=== PATIENT | female | born 1965 | race Caucasian/White ===

== ENCOUNTER 2017-10-25 21:40 | Emergency (ER) | payer OTHER | END 2017-10-25 22:27 | disposition home or self-care (01) | LOC: ER 22:27 | DX: M25.562 Pain in left knee (principal); R22.42 Localized swelling, mass and lump, left lower limb | CPT/HCPCS: 73564; 99284 ==

== ENCOUNTER 2019-10-19 08:25 | Emergency (ER) | payer MEDICAID, OTHER ==
[~2019-10-19] VITALS: Ht 160 cm; Wt 62.0 kg
[~2019-10-19 08:25] MED LIST: CEPH-264 PO; CIPR500T94 PO; DICL100G54 TP; DICL50TA4 PO; METH4TAB2 PO; PHEN-318 PO; PHEN100T82 PO
[2019-10-19 09:50] VITALS: BP 110/59
[2019-10-19] MEDS ORDERED: NAPR-514 PO (10:30)
--- NOTE | 2019-10-19 10:30 | PHYS DOC ---
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 Nothing was torn but they did tell her that she had arthritis. She states that every now and then it starts to act up and on Saturday when she was at work she was having to bend over a lot and go up and down some hills and her left knee began to really hurt her. She states she had to go home. She is here for sick note and states that she is out of the naproxen that does help her pain. Patient states that she will follow-up with Dr. Faustin as soon as she can. Patient states that she is ambulatory and can bear weight without problems is just very painful. She rates her pain a throbbing, sharp shooting in the anterior patella at 7 out of 10 and when she is up and moving is at a 10 out of 10. She denies any numbness or tingling, skin color change, skin temperature change, swelling, dizziness, headache, fall, back pain, neck pain, chest pain, shortness of air, cough. Denies any new injury. (KHALIF SLAUGHTER INTEGRITY MANAGER) Review of Systems: Review of Systems: Constitutional: Denies fever or chills. [] Eyes: Denies change in visual acuity. [] HENT: Denies nasal congestion or sore throat. [] Respiratory: Denies cough or shortness of breath. [] Cardiovascular: Denies chest pain or edema. [] GI: Denies abdominal pain, nausea, vomiting, bloody stools or diarrhea. [] : Denies dysuria. [] Musculoskeletal: Denies back pain. Right knee joint pain. [] Integument: Denies rash. [] Neurologic: Denies headache, focal weakness or sensory changes. [] Endocrine: Denies polyuria or polydipsia. [] Lymphatic: Denies swollen glands. [] Psychiatric: Denies depression or anxiety. [] (KHALIF SLAUGHTER APRN) Heart Score: Risk Factors: Risk Factors: DM, Current or recent (<one month) smoker, HTN, HLP, family history of CAD, obesity. Risk Scores: Score 0 - 3: 2.5% MACE over next 6 weeks - Discharge Home Score 4 - 6: 20.3% MACE over next 6 weeks - Admit for Clinical Observation Score 7 - 10: 72.7% MACE over next 6 weeks - Early Invasive Strategies ([facility]) Allergies: Allergies: Allergies Coded Allergies Type Severity Reaction Last Updated Verified No Known Drug Allergies 01/26/14 No ([facility]) Physical Exam: PE: Constitutional: Well developed, well nourished, no acute distress, non-toxic appearance. [] HENT: Normocephalic, atraumatic, bilateral external ears normal, oropharynx moist, no oral exudates, nose normal. [] Eyes: PERRLA, EOMI, conjunctiva normal, no discharge. [] Neck: Normal range of motion, no tenderness, supple, no stridor. [] Cardiovascular:Heart rate regular rhythm, no murmur [] Lungs & Thorax: Bilateral breath sounds clear to auscultation [] Abdomen: Bowel sounds normal, soft, no tenderness, no masses, no pulsatile masses. [] Skin: Warm, dry, no erythema, no rash. [] Back: No tenderness, no CVA tenderness. [] Extremities: No tenderness, no cyanosis, no clubbing, ROM intact, no edema. [] Neurologic: Alert and oriented X 3, normal motor function, normal sensory function, no focal deficits noted. [] Psychologic: Affect normal, judgement normal, mood normal. Normal physical exam [] ([facility] INTEGRITY MANAGER) Current Patient Data: Vital Signs: Vital Signs Date Time Temp Pulse Resp B/P (MAP) Pulse Ox O2 Delivery O2 Flow Rate FiO2 10/19/19 09:50 98.6 70 16 110/59 (76) 100 Room Air 98.6 ([facility]) EKG: EKG: [] (KHALIF SLAUGHTER APRN) Radiology/Procedures: Radiology/Procedures: [] (KHALIF SLAUGHTER APRN) Course & Med Decision Making: Course & Med Decision Making Pertinent Labs and Imaging studies reviewed. (See chart for details) Alert and oriented. Speaks in full clear sentences. Ambulatory with a steady gait. Skin pink warm and dry. No swelling, redness or tenderness to the extremity. She has full range of motion of the extremity. Denies any current fever or body aches. Patient has a history of esophageal stricture and dilation and she is also a smoker and arthritis in her left knee. Patient is given prescription for naproxen and a work note. Patient to follow-up with her doctor. [] (KHALIF SLAUGHTER APRN) Dragon Disclaimer: Dragon Disclaimer: This electronic medical record was generated, in whole or in part, using a voice recognition dictation system. (KHALIF SLAUGHTER APRN) Departure Departure Impression: Primary Impression: Knee pain, left Qualified Codes: M25.562 - Pain in left knee; G89.29 - Other chronic pain Disposition: HOME, SELF-CARE Condition: STABLE Referrals: NO PCP (PCP) Patient Instructions: Arthralgia Additional Instructions: Follow-up with your doctor soon as possible. Use ice and elevation rest the extremity. Scripts Naproxen (NAPROXEN) 500 Mg Tablet 1 TAB PO BID for pain for 30 Days, #60 TAB 0 Refills Prov: KHALIF SLAUGHTER APRN 10/19/19 Justicifation of Admission Dx: Justifications for Admission: Justification of Admission Dx: N/A (KHALIF SLAUGHTER APRN) Attending Signature Attending Signature I have participated in the care of this patient and I have reviewed and agree with all pertinent clinical information above including history, exam, and recommendations. (MUKESH MORRIS DO) KHALIF SLAUGHTER APRN Oct 19, 2019 10:30 MUKESH MORRIS DO Oct 19, 2019 16:01
== END 2019-10-19 10:42 | disposition home or self-care (01) ==
LOC: ER 08:25
DX: G89.29 Other chronic pain (principal); M25.562 Pain in left knee; F17.200 Nicotine dependence, unspecified, uncomplicated; Z98.51 Tubal ligation status; Z98.890 Other specified postprocedural states
CPT/HCPCS: 99282